=== PATIENT | female | born 1980 ===

== ENCOUNTER 2016-09-29 17:41 | Emergency (ER) | payer MEDICAID ==
[2016-09-29 17:41] VITALS: BMI 16.8
[2016-09-29 17:53] VITALS: BP 96/61; TEMP 98.1
--- NOTE | 2016-09-29 18:07 | ED PDOC ---
Arrival/HPI - General Chief Complaint: Upper Extremity Problem/Injury Time Seen by Provider: 09/29/16 18:06 Historian: Patient - History of Present Illness Narrative History of Present Illness (Text): 09/29/16 18:06 This 36 yo female with pmh RA, pain management patient, presents to this ED c/o right middle shoulder pain x 4 days. Denies trauma. Patient is asking for Percocet. [place] [employer] AWARE shows patient has been filling multiple prescriprion for oipiods every months for at least 1 year from multiple providers. Denies shoulder rash, redness, or ecchymosis. Past Medical History - Provider Review Nursing Documentation Reviewed: Yes - Infectious Disease Hx of Infectious Diseases: None - Cardiac Hx Cardiac Disorders: No - Pulmonary Hx Respiratory Disorders: No - Neurological Hx Neurological Disorder: No - HEENT Hx HEENT Disorder: No - Renal Hx Renal Disorder: No - Endocrine/Metabolic Hx Endocrine Disorders: No - Hematological/Oncological Hx Blood Disorders: No - Integumentary Hx Dermatological Disorder: No - Musculoskeletal/Rheumatological Hx Arthritis: Yes Hx Spinal Stenosis: Yes Other/Comment: RA, OA, - Gastrointestinal Hx Gastrointestinal Disorders: No - Genitourinary/Gynecological Hx Genitourinary Disorders: No - Psychiatric Hx Psychophysiologic Disorder: No Hx Substance Use: Yes - Surgical History Hx Cholecystectomy: Yes Other/Comment: B/L foot, left hand, gallbladder removed,. Right knee replacement. - Anesthesia Hx Anesthesia: No Hx Anesthesia Reactions: No Hx Malignant Hyperthermia: No Family/Social History - Physician Review Nursing Documentation Reviewed: Yes Family/Social History: No Known Family HX Smoking Status: Heavy Smoker > 10 Cigarettes Daily Hx Alcohol Use: No Hx Substance Use: Yes Substance used: percocet Allergies/Home Meds Allergies/Adverse Reactions: Allergies tramadol Allergy (Verified 09/29/16 17:52) HEADACHE Home Medications: Home Meds Medication Instructions Recorded Confirmed Oxycodone HCl/Acetaminophen 1 each PO Q4 PRN 06/22/16 09/29/16 [Percocet 10-325 mg Tablet] Review of Systems - Review of Systems Constitutional: Normal. absent: Fatigue, Weight Change, Fevers Eyes: Normal ENT: Normal Respiratory: Normal Cardiovascular: Normal Gastrointestinal: Normal Genitourinary Female: Normal Musculoskeletal: Other (Right shoulder pain) Skin: Normal Neurological: Normal Endocrine: Normal Hemo/Lymphatic: Normal Psychiatric: Normal Physical Exam Vital Signs Temp Pulse Resp BP Pulse Ox 09/29/16 19:17 16 98 09/29/16 18:00 98.1 F 79 20 99 09/29/16 17:49 98.1 F 76 20 96/61 L 98 Temperature: Afebrile Blood Pressure: Normal Pulse: Regular Respiratory Rate: Normal Appearance: Positive for: Well-Appearing, Non-Toxic, Comfortable Pain Distress: None Mental Status: Positive for: Alert and Oriented X 3 - Systems Exam Head: Present: Atraumatic, Normocephalic Pupils: Present: PERRL Extroacular Muscles: Present: EOMI Conjunctiva: Present: Normal Mouth: Present: Moist Mucous Membranes Neck: Present: Normal Range of Motion Respiratory/Chest: Present: Clear to Auscultation, Good Air Exchange. No: Respiratory Distress, Accessory Muscle Use Cardiovascular: Present: Regular Rate and Rhythm, Normal S1, S2. No: Murmurs Abdomen: Present: Normal Bowel Sounds. No: Tenderness, Distention, Peritoneal Signs Back: Present: Normal Inspection Upper Extremity: Present: Normal Inspection, NORMAL PULSES, Tenderness (Mild tenderness right middle deltoid area), Neurovascularly Intact, Capillary Refill < 2s. No: Cyanosis, Edema Lower Extremity: Present: Normal Inspection, NORMAL PULSES, Normal ROM, Capillary Refill < 2 s. No: Edema Neurological: Present: GCS=15, CN II-XII Intact, Speech Normal Skin: Present: Warm, Dry, Normal Color. No: Rashes Psychiatric: Present: Alert, Oriented x 3, Normal Insight, Normal Concentration Medical Decision Making ED Course and Treatment: 09/29/16 18:54 Re-evaluation. Patient feels better. Discussed results and plan with patient who expresses understanding. All questions answered and there is agreement with the plan to discharge home with instructions. Patient stable for discharge. Return if symptoms persist or worsen. Patient is showing drug seeking behavior. She was asking to Percocet. After telling her she has been filling 3-4 prescription of opiods every month. She wanted to have Tylenol with Codeine. I told patient that this hospital has regulation regarding opiods, and since she has multiple prescription, I will treat her pain with non-narcotic medication Re-evaluation Time: 18:54 Reassessment Condition: Re-examined, Improved - RAD Interpretation Narrative RAD Interpretations (Text): Shoulder x-rays: No Fx or sublux. Radiology Orders: 09/29/16 18:21 SHOULDER RIGHT [RAD] Stat - Medication Orders Current Medication Orders: Discontinued Medications Ketorolac Tromethamine (Toradol) 15 mg IM STAT STA Stop: 09/29/16 18:21 Last Admin: 09/29/16 18:38 Dose: 15 mg Disposition/Present on Arrival - Present on Arrival Any Indicators Present on Arrival: No History of DVT/PE: No History of Uncontrolled Diabetes: No Urinary Catheter: No History of Decub. Ulcer: No History Surgical Site Infection Following: None - Disposition Have Diagnosis and Disposition been Completed?: Yes Diagnosis: Shoulder pain, Drug-seeking behavior Disposition: HOME/ ROUTINE Disposition Time: 18:55 Patient Plan: Discharge Condition: GOOD Discharge Instructions (ExitCare): Shoulder Bursitis (ED) Additional Instructions: Call private pain management doctor for revaluation and pain control. Call orthopedist if shoulder pain persist. Return to emergency if symptoms worsen. Prescriptions: Famotidine [Pepcid] 40 mg PO DAILY #10 tablet Naproxen 500 mg PO BID #14 tab Referrals: Venus Walters, [Non-Staff] - Follow up with primary Ricardo Mcginnis DO [Staff Provider] - Follow up with primary [facility] [Outside] - Follow up with primary Forms: WORK NOTE
[2016-09-29 18:21] VITALS: PULSE 79
[2016-09-29 19:18] VITALS: RESP 16; O2SAT 98
--- NOTE | 2016-09-30 10:24 | RAD ---
PROCEDURE: Radiographs of the Right Shoulder HISTORY: pain COMPARISON: No prior. FINDINGS: BONES: Normal. No fracture. JOINTS: Normal. Glenohumeral and acromioclavicular joints preserved. No osteoarthritis. SOFT TISSUES: Normal. OTHER FINDINGS: None. IMPRESSION: Normal radiographs of the right shoulder.
== END 2016-09-29 19:18 | disposition home or self-care (01) ==
LOC: ED 17:41
DX: M25.511 Pain in right shoulder (principal)
CPT/HCPCS: 73030; 96372; 99283; J1885

== ENCOUNTER 2017-11-21 15:47 | Emergency (ER) | payer MEDICAID ==
[2017-11-21 15:47] VITALS: BMI 16.8
[2017-11-21 16:01] VITALS: BP 122/73
[2017-11-21] MEDS ORDERED: Oxycodone/Acetaminophen 5/325 mg Tab PO STA (16:11)
--- NOTE | 2017-11-21 16:33 | ED PDOC ---
Arrival/HPI - General Chief Complaint: Lower Extremity Problem/Injury Time Seen by Provider: 11/21/17 15:51 Historian: Patient - History of Present Illness Narrative History of Present Illness (Text): 11/21/17 16:08 A 37 year old female, whose past medical history includes rheumatoid arthritis ( 17 years), presents to the emergency department complaining of bilateral lower extremity pain for 3 days. Patient reports pain occurs in thighs, knees, and shins. Patient claims to have recently moved [place] her PMD is located, and has had difficulty finding a rheumotoligst in [place]. She notes she is only prescribed Percocet for pain, however has recently ran out of the medication and is unable to obtain a refill until 12/19/17. Patient denies any fever, chills, abdominal pain, nausea, vomiting, chest pain, palpitations, or any other complaints at this time. Also, patient mentions she has no history of consuming alcohol or smoking. No PMD Time/Duration: < week (3 days) Symptom Onset: Sudden Symptom Course: Unchanged Past Medical History - Provider Review Nursing Documentation Reviewed: Yes - Infectious Disease Hx of Infectious Diseases: None - Cardiac Hx Cardiac Disorders: No - Pulmonary Hx Respiratory Disorders: No - Neurological Hx Neurological Disorder: No - HEENT Hx HEENT Disorder: No - Renal Hx Renal Disorder: No - Endocrine/Metabolic Hx Endocrine Disorders: No - Hematological/Oncological Hx Blood Disorders: No - Integumentary Hx Dermatological Disorder: No - Musculoskeletal/Rheumatological Hx Arthritis: Yes Hx Spinal Stenosis: Yes Other/Comment: RA, OA, - Gastrointestinal Hx Gastrointestinal Disorders: No - Genitourinary/Gynecological Hx Genitourinary Disorders: No - Psychiatric Hx Psychophysiologic Disorder: No Hx Substance Use: Yes - Surgical History Hx Cholecystectomy: Yes Other/Comment: B/L foot, left hand, gallbladder removed,. Right knee replacement. - Anesthesia Hx Anesthesia: Yes Hx Anesthesia Reactions: No Hx Malignant Hyperthermia: No Family/Social History - Physician Review Nursing Documentation Reviewed: Yes Family/Social History: No Known Family HX Smoking Status: Heavy Smoker > 10 Cigarettes Daily Hx Alcohol Use: No Hx Substance Use: Yes Substance used: percocet Allergies/Home Meds Allergies/Adverse Reactions: Allergies tramadol Allergy (Verified 09/29/16 17:52) HEADACHE Home Medications: Home Meds Medication Instructions Recorded Confirmed Oxycodone HCl/Acetaminophen 1 each PO Q4 PRN 06/22/16 11/21/17 [Percocet 10-325 mg Tablet] Review of Systems - Physician Review All systems were reviewed & negative as marked: Yes - Review of Systems Constitutional: absent: Fevers, Night Sweats Cardiovascular: absent: Chest Pain, Palpitations Gastrointestinal: absent: Abdominal Pain, Nausea, Vomiting Musculoskeletal: Other (bilateral lower extremity pain (thighs, knees and shins) ) Physical Exam Vital Signs Reviewed: Yes Vital Signs Temp Pulse Resp BP Pulse Ox 11/21/17 16:00 98.6 F 96 H 18 122/73 100 Temperature: Afebrile Blood Pressure: Normal Pulse: Regular Respiratory Rate: Normal Appearance: Positive for: Well-Appearing Pain Distress: None Mental Status: Positive for: Alert and Oriented X 3 - Systems Exam Head: Present: Atraumatic, Normocephalic Neck: Present: Normal Range of Motion Respiratory/Chest: Present: Clear to Auscultation, Good Air Exchange. No: Respiratory Distress, Accessory Muscle Use Cardiovascular: Present: Regular Rate and Rhythm, Normal S1, S2. No: Murmurs Abdomen: No: Tenderness, Distention, Peritoneal Signs Back: Present: Normal Inspection Upper Extremity: Present: Normal Inspection. No: Cyanosis, Edema Lower Extremity: Present: Normal Inspection. No: Edema Neurological: Present: GCS=15, CN II-XII Intact, Speech Normal Skin: Present: Warm, Dry, Normal Color. No: Rashes Psychiatric: Present: Alert, Oriented x 3, Normal Insight, Normal Concentration Medical Decision Making ED Course and Treatment: 11/21/17 16:11 Impression: 37 year old female with bilateral lower extremity pain to thighs, knees and shins. No acute findings on physical examination. Plan: -- Lower Extremity Ultrasound -- Labs -- Percocet -- Reassess and disposition Prior Visits: Notes and results from previous visits were reviewed. Patient was last seen in the emergency department on 09/29/2016 for right middle shoulder pain. Patient was discharged home. Progress Notes: 11/21/2017 17:15 Lower Extremity Ultrasound IMPRESSION: No sonographic evidence for deep venous thrombosis in the visualized segments of both lower extremities. Dictator: Bud Posada MD - Lab Interpretations Lab Results: 11/21/17 16:16 11/21/17 16:16 Lab Results 11/21/17 16:16: Sodium 142, Potassium 3.6, Chloride 109 H, Carbon Dioxide 21, Anion Gap 16, BUN 6 L, Creatinine 0.4 L, Est GFR ( Amer) > 60, Est GFR ( Non-Af Amer) > 60, Random Glucose 97, Calcium 8.8, Total Bilirubin 0.6, AST 18, ALT 25, Alkaline Phosphatase 84, Total Protein 7.6, Albumin 4.1, Globulin 3.6, Albumin/Globulin Ratio 1.2 11/21/17 16:16: PT 12.9 H, INR 1.13 H 11/21/17 16:16: WBC 9.7, RBC 4.22, Hgb 12.8, Hct 37.2, MCV 88.2, MCH 30.3, MCHC 34.4, RDW 14.3, Plt Count 353, MPV 9.6, Gran % 54.4, Lymph % (Auto) 34.5, Zapata % (Auto) 5.2, Eos % (Auto) 5.8 H, Baso % (Auto) 0.1, Gran # 5.29, Lymph # (Auto ) 3.4, Zapata # (Auto) 0.5, Eos # (Auto) 0.6, Baso # (Auto) 0.01, ESR 25 H I have reviewed the lab results: Yes - RAD Interpretation Radiology Orders: 11/21/17 16:11 DUPLEX LOWER EXTRM VEIN BILAT [US] Stat - Medication Orders Current Medication Orders: Discontinued Medications Oxycodone/Acetaminophen (Percocet 5/325 Mg Tab) 2 tab PO STAT STA Stop: 11/21/17 16:12 Last Admin: 11/21/17 16:18 Dose: 2 tab MAR Pain Assessment Document 11/21/17 16:18 [email or web address] (Rec: 11/21/17 16:19 [email or web address] [facility] [place] [id number][place] Pain Reassessment Is this a pain reassessment? No Sleep Is patient sleeping during reassessment? No Presence of Pain Presence of Pain Yes Pain Scale Used Pain Scale Used Numeric Location Left, Right or Bilateral Bilateral Pain Location Body Site Leg Description Description Constant Intensity of Pain at present 7 Pain Behavior Facial Grimacing Aggravating Factors Changing Position Alleviating Factors/Management Medication Techniques Alleviating Factors Medication - Scribe Statement The provider has reviewed the documentation as recorded by the Mya Cote Provider Scribe Attestation: All medical record entries made by the Scribe were at my direction and personally dictated by me. I have reviewed the chart and agree that the record accurately reflects my personal performance of the history, physical exam, medical decision making, and the department course for this patient. I have also personally directed, reviewed, and agree with the discharge instructions and disposition. Disposition/Present on Arrival - Present on Arrival Any Indicators Present on Arrival: No History of DVT/PE: No History of Uncontrolled Diabetes: No Urinary Catheter: No History of Decub. Ulcer: No History Surgical Site Infection Following: None - Disposition Have Diagnosis and Disposition been Completed?: Yes Diagnosis: Chronic pain, History of rheumatoid arthritis Disposition: HOME/ ROUTINE Disposition Time: 17:51 Patient Plan: Discharge Condition: GOOD Discharge Instructions (ExitCare): Chronic Pain (DC), Rheumatoid Arthritis (DC) Additional Instructions: Mila - Sorry that you are having so much pain. Please follow up with Dr Juan Hoff in [place], (Pinmaker)@ [phone]. [facility]- Dr. Noe Guevara Referrals: Maribell Worley MD [Primary Care Provider] - Follow up with primary Forms: [employer] (Telugu)
[2017-11-21 16:40] LABS: BASO # 0.01 K/mm3 (0.0-2.0); BASO % 0.1 % (0.0-3.0); EOS # 0.6 (0.0-0.7); EOS % 5.8 % (1.5-5.0); GRAN # 5.29 (1.4-6.5); GRAN % 54.4 % (50.0-68.0); HEMOGLOBIN 12.8 g/dL (12.0-16.0); LYMPH # 3.4 (1.2-3.4); LYMPH % 34.5 % (22.0-35.0); MEAN CELL VOLUME 88.2 fl (80.0-105.0); MEAN CORPUSCULAR HEMOGLOBIN 30.3 pg (25.0-35.0); MEAN CORPUSCULAR HGB CONC 34.4 g/dl (31.0-37.0); MEAN PLATELET VOLUME 9.6 fl (7.0-11.0); MONO # 0.5 (0.1-0.6); MONO % 5.2 % (1.0-6.0); RBC 4.22 10^6/uL (3.5-6.1); RED CELL DISTRIBUTION WIDTH 14.3 % (11.5-14.5); WHITE BLOOD COUNT 9.7 10^3/ul (4.5-11.0)
[2017-11-21 16:49] LABS: ALB/GLOB RATIO 1.2 (1.1-1.8); ALBUMIN 4.1 g/dL (3.0-4.8); ALT/SGPT 25 U/L (7-56); AST/SGOT 18 U/L (14-36); BLOOD UREA NITROGEN 6 mg/dL (7-21); CALCIUM 8.8 mg/dL (8.4-10.5); GFR AFRICAN-AMERICAN > 60; GFR NON-AFRICAN AMERICAN > 60
[2017-11-21 16:51] LABS: INR 1.13 (0.93-1.08); PROTHROMBIN TIME 12.9 SECONDS (9.4-12.5)
--- NOTE | 2017-11-21 17:16 | US ---
HISTORY: Leg pain and swelling. Evaluate for DVT PHYSICIAN(S): Bud Posada MD. TECHNIQUE: Duplex sonography and color-flow Doppler with graded compression were used to evaluate the deep venous systems of both lower extremities. FINDINGS: The visualized deep venous systems of both lower extremities are sonographically normal and compressible. Normal wave forms and augmentation are seen. There is no sonographic evidence for deep venous thrombosis in the visualized segments of both lower extremities. IMPRESSION: No sonographic evidence for deep venous thrombosis in the visualized segments of both lower extremities.
[2017-11-21 18:08] VITALS: PULSE 95; RESP 19; TEMP 98.1; O2SAT 99
== END 2017-11-21 18:08 | disposition home or self-care (01) ==
LOC: ED 15:47
DX: G89.29 Other chronic pain (principal); M06.9 Rheumatoid arthritis, unspecified; F17.210 Nicotine dependence, cigarettes, uncomplicated; Z96.651 Presence of right artificial knee joint

== ENCOUNTER 2018-01-05 22:39 | Observation (INO) | payer MEDICAID ==
[2018-01-05 22:51] VITALS: BMI 18.5
[2018-01-06 00:21] LABS: BASO # 0.02 K/mm3 (0.0-2.0); BASO % 0.1 % (0.0-3.0); EOS # 0.5 (0.0-0.7); EOS % 3.9 % (1.5-5.0); GRAN # 8.92 (1.4-6.5); GRAN % 63.9 % (50.0-68.0); HEMOGLOBIN 12.8 g/dL (12.0-16.0); LYMPH # 3.9 (1.2-3.4); LYMPH % 27.7 % (22.0-35.0); MEAN CELL VOLUME 90.1 fl (80.0-105.0); MEAN CORPUSCULAR HEMOGLOBIN 29.5 pg (25.0-35.0); MEAN CORPUSCULAR HGB CONC 32.7 g/dl (31.0-37.0); MEAN PLATELET VOLUME 10.2 fl (7.0-11.0); MONO # 0.6 (0.1-0.6); MONO % 4.4 % (1.0-6.0); RBC 4.34 10^6/uL (3.5-6.1); RED CELL DISTRIBUTION WIDTH 13.9 % (11.5-14.5)
[2018-01-06 00:26] LABS: ALB/GLOB RATIO 1.3 (1.1-1.8); ALBUMIN 4.3 g/dL (3.0-4.8); ALT/SGPT 23 U/L (7-56); AST/SGOT 31 U/L (14-36); BLOOD UREA NITROGEN 4 mg/dL (7-21); CALCIUM 9.1 mg/dL (8.4-10.5); GFR AFRICAN-AMERICAN > 60; GFR NON-AFRICAN AMERICAN > 60
[2018-01-06 00:36] LABS: TROPONIN I < 0.01 ng/mL
[2018-01-06] MEDS ORDERED: Oxycodone/Acetaminophen 5/325 mg Tab PO STA ×2 (00:58→13:31)
--- NOTE | 2018-01-06 00:58 | ED PDOC ---
Arrival/HPI <Juan Kimball - Last Filed: 01/06/18 02:28> - General Historian: Patient <Raina Blanton PA-C - Last Filed: 01/06/18 16:17> - General Chief Complaint: Chest Pain Time Seen by Provider: 01/05/18 23:26 - History of Present Illness Narrative History of Present Illness (Text): 01/06/18 00:55 37 yo F with PMH of pericardial effusion from an unknown cause 5 years ago, reports developing constant R sided midsternal chest pain worse with taking deep breathes. Reports that she had similar symptoms last week and she saw her student accounts manager who did an EKG in the office, was told that there was an old heart attack noted on her EKG. She was told by her student accounts manager to go for an echocardiogram and for a stress test that is scheduled at the end of December.at the end of December. Otherwise: (-) radiation, (-) diaphoresis, (-) dyspnea, (+) pleuritic component, (-) ripping or tearing quality, (-) positional component, ( -) exertional component, (-) dizziness, (-) syncope, (-) nausea, (-) vomiting, ( -) calf swelling/pain, (-) recent travel, (-) recent hospitalizations/surgeries , (-) neuro deficits. PMD [employer] [place] (Raina Blanton PA-C) Past Medical History - Infectious Disease Hx of Infectious Diseases: None - Cardiac Hx Cardiac Disorders: No - Pulmonary Hx Respiratory Disorders: No - Neurological Hx Neurological Disorder: No - HEENT Hx HEENT Disorder: No - Renal Hx Renal Disorder: No - Endocrine/Metabolic Hx Endocrine Disorders: No - Hematological/Oncological Hx Blood Disorders: No - Integumentary Hx Dermatological Disorder: No - Musculoskeletal/Rheumatological Hx Arthritis: Yes Hx Spinal Stenosis: Yes Other/Comment: RA, OA, - Gastrointestinal Hx Gastrointestinal Disorders: No - Genitourinary/Gynecological Hx Genitourinary Disorders: No - Psychiatric Hx Psychophysiologic Disorder: No Hx Substance Use: Yes - Surgical History Hx Cholecystectomy: Yes Other/Comment: B/L foot, left hand, gallbladder removed,. Right knee replacement. - Anesthesia Hx Anesthesia: No <Raina Blanton PA-C - Last Filed: 01/06/18 16:17> Family/Social History Family/Social History: No Known Family HX Smoking Status: Heavy Smoker > 10 Cigarettes Daily Hx Alcohol Use: No Hx Substance Use: Yes Substance used: percocet <Raina Blanton PA-C - Last Filed: 01/06/18 16:17> Allergies/Home Meds <Juan Kmiball - Last Filed: 01/06/18 02:28> <Raina Blanton PA-C - Last Filed: 01/06/18 16:17> Allergies/Adverse Reactions: Allergies tramadol Allergy (Verified 01/05/18 22:50) HEADACHE Review of Systems - Review of Systems Constitutional: absent: Fatigue, Weight Change, Fevers Respiratory: absent: SOB, Cough, Sputum Cardiovascular: Chest Pain. absent: Palpitations, Edema Gastrointestinal: absent: Abdominal Pain, Nausea, Vomiting Genitourinary Female: absent: Dysuria, Frequency Musculoskeletal: absent: Arthralgias, Back Pain, Neck Pain Skin: absent: Rash, Pruritis, Skin Lesions Neurological: absent: Headache, Dizziness <Raina Blanton PA-C - Last Filed: 01/06/18 16:17> Physical Exam Temperature: Afebrile Blood Pressure: Normal Pulse: Regular Respiratory Rate: Normal Appearance: Positive for: Well-Appearing, Non-Toxic, Comfortable Pain Distress: None Mental Status: Positive for: Alert and Oriented X 3 - Systems Exam Head: Present: Atraumatic, Normocephalic Pupils: Present: PERRL Extroacular Muscles: Present: EOMI Conjunctiva: Present: Normal Mouth: Present: Moist Mucous Membranes Neck: Present: Normal Range of Motion. No: MIDLINE TENDERNESS Respiratory/Chest: Present: Clear to Auscultation, Good Air Exchange. No: Respiratory Distress, Accessory Muscle Use Cardiovascular: Present: Regular Rate and Rhythm, Normal S1, S2. No: Murmurs, Rub, Muffled Abdomen: No: Tenderness, Distention, Peritoneal Signs Back: Present: Normal Inspection. No: CVA Tenderness, Midline Tenderness Upper Extremity: Present: Normal Inspection. No: Cyanosis, Edema Lower Extremity: Present: Normal Inspection. No: Edema Neurological: Present: GCS=15, CN II-XII Intact, Speech Normal, Motor Func Grossly Intact, Normal Sensory Function Skin: Present: Warm, Dry, Normal Color. No: Rashes Psychiatric: Present: Alert, Oriented x 3, Normal Insight, Normal Concentration <Raina Blanton PA-C - Last Filed: 01/06/18 16:17> Vital Signs Temp Pulse Resp BP Pulse Ox 01/06/18 02:38 65 16 98/58 L 100 01/06/18 00:40 65 16 96/54 L 99 01/05/18 22:40 98.5 F 99 H 19 98/56 L 96 Medical Decision Making <Juan Kimball - Last Filed: 01/06/18 02:28> <Raina Blanton PA-C - Last Filed: 01/06/18 16:17> ED Course and Treatment: 01/06/18 00:53 Plan : - Labs - IV - CXR - EKG - Asa PO PERC Rule for Pulmonary Embolism from [facility] on 01/06/2018 All calculations should be rechecked by clinician prior to use RESULT SUMMARY: 0 criteria No need for further workup, as <2% chance of PE. If no criteria are positive and clinicians pre-test probability is <15%, PERC Rule criteria are satisfied. INPUTS: Age 50 > 0 = No HR 100 > 0 = No Karla on room air <95% > 0 = No Unilateral leg swelling > 0 = No Hemoptysis > 0 = No Recent surgery or trauma > 0 = No Prior PE or DVT > 0 = No Hormone use > 0 = No 01/06/18 00:59 EKG : ST at 102 bpm, (-) acute ST changes, as read by PA Labs reviewed : wbc 14, K 3.4, trop (-) CXR : NAD, as read by ABDELRAHMAN Matt d/w Dr. Del Rosario, agrees with plan for tele obs. (Raina Blanton PA-C) - Lab Interpretations Lab Results: 01/05/18 23:55 01/05/18 23:55 Lab Results 01/05/18 23:55: Sodium 143, Potassium 3.4 L, Chloride 105, Carbon Dioxide 25, Anion Gap 17, BUN 4 L, Creatinine 0.5 L, Est GFR ( Amer) > 60, Est GFR ( Non-Af Amer) > 60, Random Glucose 101, Calcium 9.1, Magnesium 2.0, Total Bilirubin 0.5, AST 31, ALT 23, Alkaline Phosphatase 84, Lactate Dehydrogenase 377, Total Creatine Kinase 34 L, Troponin I < 0.01, Total Protein 7.5, Albumin 4.3, Globulin 3.2, Albumin/Globulin Ratio 1.3 01/05/18 23:55: WBC 14.0 H D, RBC 4.34, Hgb 12.8, Hct 39.1, MCV 90.1, MCH 29.5, MCHC 32.7, RDW 13.9, Plt Count 385, MPV 10.2, Gran % 63.9, Lymph % (Auto) 27.7, [place] % (Auto) 4.4, Eos % (Auto) 3.9, Baso % (Auto) 0.1, Gran # 8.92 H, Lymph # ( Auto) 3.9 H, [place] # (Auto) 0.6, Eos # (Auto) 0.5, Baso # (Auto) 0.02 - RAD Interpretation Radiology Orders: 01/05/18 23:58 CHEST TWO VIEWS (PA/LAT) [RAD] Stat - Medication Orders Current Medication Orders: Discontinued Medications Aspirin (Aspirin) 325 mg PO STAT STA Stop: 01/05/18 23:59 Last Admin: 01/06/18 00:19 Dose: 325 mg Aspirin (Ecotrin) 81 mg PO DAILY [facility] Last Admin: 01/06/18 10:06 Dose: 81 mg Atorvastatin Calcium (Lipitor) 40 mg PO DIN [facility] Enoxaparin Sodium (Lovenox) 40 mg SC DAILY [facility] PRN Reason: Protocol Last Admin: 01/06/18 13:30 Dose: Not Given Non-Admin Reason: Patient Refused Sodium Chloride (Sodium Chloride 0.9%) 1,000 mls @ 100 mls/hr IV .Q10H [facility] Naproxen (Anaprox Ds) 550 mg PO BID [facility] Last Admin: 01/06/18 10:00 Dose: Not Given Non-Admin Reason: Patient Refused Oxycodone/Acetaminophen (Percocet 5/325 Mg Tab) 1 tab PO STAT STA Stop: 01/06/18 00:59 Last Admin: 01/06/18 01:48 Dose: 1 tab MAR Pain Assessment Document 01/06/18 01:48 JOL (Rec: 01/06/18 01:48 JOL [id number]) Pain Reassessment Is this a pain reassessment? No Sleep Is patient sleeping during reassessment? No Presence of Pain Presence of Pain Yes Location Pain Location Body Site Chest Description Intensity of Pain at present 5 Re-Assess: [facility] Pain Assessment Document 01/06/18 02:48 ML (Rec: 01/06/18 04:41 ML [id number]) Pain Reassessment Is this a pain reassessment? Yes Presence of Pain Presence of Pain No Oxycodone/Acetaminophen (Percocet 5/325 Mg Tab) 1 tab PO QID [facility] Stop: 01/09/18 10:01 Oxycodone/Acetaminophen (Percocet 5/325 Mg Tab) 1 tab PO QID PRN PRN Reason: Pain, severe (8-10) Stop: 01/09/18 10:01 Oxycodone/Acetaminophen (Percocet 5/325 Mg Tab) 1 tab PO STAT STA Stop: 01/06/18 13:32 Last Admin: 01/06/18 14:16 Dose: 1 tab [facility] Pain Assessment Document 01/06/18 14:16 ROSIE (Rec: 01/06/18 14:17 [facility] [id number]) Pain Reassessment Is this a pain reassessment? No Sleep Is patient sleeping during reassessment? No Presence of Pain Presence of Pain Yes Pain Scale Used Pain Scale Used Numeric Location Pain Location Body Site Generalized Description Description Intermittent Intensity of Pain at present 7 Pantoprazole Sodium (Protonix Inj) 40 mg IVP DAILY [facility] Last Admin: 01/06/18 10:06 Dose: 40 mg IVP Administration Document 01/06/18 10:06 [facility] (Rec: 01/06/18 10:06 [facility] [id number]) Charges for Administration # of IVP Administrations 1 Pantoprazole Sodium (Protonix Ec Tab) 40 mg PO ACB [facility] Potassium Chloride (Klor-Con 10) 40 meq PO STAT STA Stop: 01/06/18 01:45 Last Admin: 01/06/18 02:38 Dose: 40 meq - PA / WEB PORTAL DEVELOPER / Resident Statement / has reviewed & agrees with the documentation as recorded. / has examined the patient and agrees with the treatment plan. <Juan Kimball - Last Filed: 01/06/18 02:28> - PA / WEB PORTAL DEVELOPER / Resident Statement / has reviewed & agrees with the documentation as recorded. <Raina Blanton PA-C - Last Filed: 01/06/18 16:17> Disposition/Present on Arrival <Juan Kimball - Last Filed: 01/06/18 02:28> - Present on Arrival Any Indicators Present on Arrival: No History of DVT/PE: No History of Uncontrolled Diabetes: No Urinary Catheter: No History of Decub. Ulcer: No History Surgical Site Infection Following: None - Disposition Have Diagnosis and Disposition been Completed?: Yes Disposition Time: 02:00 Patient Plan: Telemetry (observation) <Raina Blanton PA-C - Last Filed: 01/06/18 16:17> - Disposition Diagnosis: Chest pain Disposition: HOSPITALIZED Condition: STABLE
[2018-01-06] MEDS ORDERED: Potassium Chloride 10 mEq ER Tab PO STA (01:44)
[2018-01-06] MEDS ORDERED: Oxycodone/Acetaminophen 5/325 mg Tab PO PRN ×2 (05:42→05:46)
--- NOTE | 2018-01-06 06:03 | CP.PCM.HP ---
History of Present Illness - History of Present Illness History of Present Illness: HISTORY & PHYSICAL NOTE FOR HOSPITALIST TEAM AINSH REDDY PGY-1 CC: Chest pain, worse with inspiration 37 y/o F with pmhx of pericardial effusion, RA presented to ED with complains of constant "pressure like" chest pain that's aggravated with inspiration and not alleviated by anything in particular. Pain is located in sternal region and is currently 8/10 severity, without radiation and without tearing quality. The pain had started yesterday around 5pm, and remained since then. She reports having similar pain about a week prior and visited securities counselor who told her she had "an old heart attack." She was scheduled to undergo an echocardiogram with stress test in outpatient setting in december. She is followed by a securities counselor at [place]. She denies fevers, chills, diophoresis, shortness of breath, nausea, vomiting, headache, dizziness, constipation, diarrhea. PMD: unable to obtain PMH: pericardial effusion, rheumatoid arthritis PSH: b/l hand surgery, b/l l/e distal phalanx surgery, R total knee replacement SH: cigarettes: pack/day x 24 years. Denies alcohol/drug use All: tramadol- rash Famhx: Brother: "open heart surgery" for pericardial effusion Meds: Percocet 5/325 prn pain Present on Admission - Present on Admission Any Indicators Present on Admission: No Review of Systems - Review of Systems All systems: reviewed and no additional remarkable complaints except (as per HPI , otherwise negative) Past Patient History - Infectious Disease Hx of Infectious Diseases: None - Past Social History Smoking Status: Heavy Smoker > 10 Cigarettes Daily - CARDIAC Hx Cardiac Disorders: No - PULMONARY Hx Respiratory Disorders: No - NEUROLOGICAL Hx Neurological Disorder: No - HEENT Hx HEENT Problems: No - RENAL Hx Chronic Kidney Disease: No - ENDOCRINE/METABOLIC Hx Endocrine Disorders: No - HEMATOLOGICAL/ONCOLOGICAL Hx Blood Disorders: No - INTEGUMENTARY Hx Dermatological Problems: No - MUSCULOSKELETAL/RHEUMATOLOGICAL Hx Arthritis: Yes Hx Falls: No Hx Rheumatoid Arthritis: Yes Hx Spinal Stenosis: Yes Other/Comment: RA, OA, - GASTROINTESTINAL Hx Gastrointestinal Disorders: No - GENITOURINARY/GYNECOLOGICAL Hx Genitourinary Disorders: No - PSYCHIATRIC Hx Psychophysiologic Disorder: No - SURGICAL HISTORY Hx Cholecystectomy: Yes Other/Comment: B/L foot, left hand, gallbladder removed,. Right knee replacement. - ANESTHESIA Hx Anesthesia: No Meds Allergies/Adverse Reactions: Allergies Allergy/AdvReac Type Severity Reaction Status Date / Time tramadol Allergy HEADACHE Verified 01/05/18 22:50 Physical Exam - Constitutional Appears: Well, Non-toxic, No Acute Distress - Head Exam Head Exam: NORMAL INSPECTION, NORMOCEPHALIC - Eye Exam Eye Exam: EOMI, Normal appearance - ENT Exam ENT Exam: Mucous Membranes Moist, Normal Exam - Neck Exam Neck exam: Positive for: Normal Inspection. Negative for: Meningismus - Respiratory Exam Respiratory Exam: Chest Wall Tenderness, Clear to Auscultation Bilateral, NORMAL BREATHING PATTERN - Cardiovascular Exam Cardiovascular Exam: REGULAR RHYTHM, +S1, +S2 Additional comments: No friction rub noted - GI/Abdominal Exam GI & Abdominal Exam: Normal Bowel Sounds, Soft. absent: Distended - Extremities Exam Additional comments: Bouchards nodes b/l u/e - Neurological Exam Neurological exam: Alert, CN II-XII Intact, Oriented x3 Results - Vital Signs Recent Vital Signs: Last Vital Signs Temp 98.5 F 01/05/18 22:40 Pulse 65 01/06/18 04:15 Resp 14 01/06/18 04:15 BP 98/58 L 01/06/18 04:15 Pulse Ox 100 01/06/18 02:38 - Labs Result Diagrams: 01/06/18 05:30 01/06/18 05:30 Assessment & Plan - Assessment and Plan (Free Text) Assessment: 37y/o F with pmhx of pericardial effusion, rheumatoid arthritis admitted for ACS rule out. Pt had recently visited her securities counselor who told her that she had EKG changes suggesting previous SC. She was scheduled for echocardiogram and stress test in december. She arrived to ED with constant pleuritic chest pain. Plan: 1. 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 Alvarez Echocardiogram in am O2 2L NC prn Heart healthy diet 2. Rheumatoid Arthritis Continue home 5/325 percocet Follow up with veneer lathe operator outpatient 3. Tobacco use disorder Encourage cessation DVT/GI: Lovenox/protonix Case discussed with and reviewed with attending physician, Dr. Del Rosario
[2018-01-06 06:31] LABS: BASO # 0.02 K/mm3 (0.0-2.0); BASO % 0.2 % (0.0-3.0); EOS # 0.6 (0.0-0.7); EOS % 6.1 % (1.5-5.0); GRAN # 4.41 (1.4-6.5); GRAN % 48.4 % (50.0-68.0); HEMOGLOBIN 11.3 g/dL (12.0-16.0); LYMPH # 3.6 (1.2-3.4); LYMPH % 39.6 % (22.0-35.0); MEAN CELL VOLUME 89.5 fl (80.0-105.0); MEAN CORPUSCULAR HGB CONC 32.5 g/dl (31.0-37.0); MEAN PLATELET VOLUME 9.9 fl (7.0-11.0); MONO # 0.5 (0.1-0.6); MONO % 5.7 % (1.0-6.0); RBC 3.89 10^6/uL (3.5-6.1); RED CELL DISTRIBUTION WIDTH 14.1 % (11.5-14.5); WHITE BLOOD COUNT 9.1 10^3/ul (4.5-11.0)
[2018-01-06] MEDS ORDERED: Sodium Chloride 0.9% 1,000 ML IV SCH (06:45)
[2018-01-06 07:43] LABS: BLOOD UREA NITROGEN 7 mg/dL (7-21); GFR AFRICAN-AMERICAN > 60; GFR NON-AFRICAN AMERICAN > 60
[2018-01-06 07:44] LABS: ALB/GLOB RATIO 1.1 (1.1-1.8); ALBUMIN 3.4 g/dL (3.0-4.8); ALT/SGPT 28 U/L (7-56); AST/SGOT 29 U/L (14-36); CALCIUM 8.5 mg/dL (8.4-10.5)
--- NOTE | 2018-01-06 08:11 | CP.PCM.CON ---
History of Present Illness - History of Present Illness History of Present Illness: awaken, alert,no distress, mild mid sternal chest pain Reason for consultation: Cardiac evaluation of chest pain, history of pericardial effusion Brief history of present illness: A 37 year old female who came in to the ER due to right sided mid chest pain, non radiating, worse when taking deep breaths. She has similar symptoms last week and went to her kiln maintenance and had an EKG. She was scheduled to have ECHO and Stress test end of December. Current smoker 1 pack per day, history of arthritis, pericardial effusion, spinal stenosis, right knee replacement, cholecystectomy. Seen and examined by me and Dr. Adams Review of Systems - Review of Systems All systems: reviewed and no additional remarkable complaints except Review of Systems: as per HPI Past Patient History - Infectious Disease Hx of Infectious Diseases: None - Past Social History Smoking Status: Heavy Smoker > 10 Cigarettes Daily - CARDIAC Hx Cardiac Disorders: No - PULMONARY Hx Respiratory Disorders: No - NEUROLOGICAL Hx Neurological Disorder: No - HEENT Hx HEENT Problems: No - RENAL Hx Chronic Kidney Disease: No - ENDOCRINE/METABOLIC Hx Endocrine Disorders: No - HEMATOLOGICAL/ONCOLOGICAL Hx Blood Disorders: No - INTEGUMENTARY Hx Dermatological Problems: No - MUSCULOSKELETAL/RHEUMATOLOGICAL Hx Arthritis: Yes Hx Falls: No Hx Rheumatoid Arthritis: Yes Hx Spinal Stenosis: Yes Other/Comment: RA, OA, - GASTROINTESTINAL Hx Gastrointestinal Disorders: No - GENITOURINARY/GYNECOLOGICAL Hx Genitourinary Disorders: No - PSYCHIATRIC Hx Psychophysiologic Disorder: No - SURGICAL HISTORY Hx Cholecystectomy: Yes Other/Comment: B/L foot, left hand, gallbladder removed,. Right knee replacement. - ANESTHESIA Hx Anesthesia: No Meds Home Medications: Home Medication List Medication Instructions Recorded Confirmed Type Aspirin [Ecotrin] 81 mg PO DAILY #14 tabec 01/06/18 Rx Atorvastatin [Lipitor] 40 mg PO DIN #14 tab 01/06/18 Rx Allergies/Adverse Reactions: Allergies Allergy/AdvReac Type Severity Reaction Status Date / Time tramadol Allergy HEADACHE Verified 01/05/18 22:50 - Medications Medications: Current Medications Aspirin (Ecotrin) 81 mg PO DAILY [facility] Atorvastatin Calcium (Lipitor) 40 mg PO DIN [facility] Enoxaparin Sodium (Lovenox) 40 mg SC DAILY [facility] PRN Reason: Protocol Sodium Chloride (Sodium Chloride 0.9%) 1,000 mls @ 100 mls/hr IV .Q10H [facility] Ibuprofen (Motrin Tab) 600 mg PO Q6H PRN PRN Reason: Pain, moderate (4-7) Oxycodone/Acetaminophen (Percocet 5/325 Mg Tab) 1 tab PO QID PRN PRN Reason: Pain, severe (8-10) Stop: 01/09/18 10:01 Pantoprazole Sodium (Protonix Inj) 40 mg IVP DAILY [facility] Physical Exam - Constitutional Appears: No Acute Distress - Head Exam Head Exam: NORMOCEPHALIC - Eye Exam Eye Exam: Normal appearance - ENT Exam ENT Exam: Mucous Membranes Moist - Respiratory Exam Respiratory Exam: Clear to Auscultation Bilateral, NORMAL BREATHING PATTERN - Cardiovascular Exam Cardiovascular Exam: REGULAR RHYTHM, +S1, +S2 Additional comments: mild mid sternal chest pain when breathing - GI/Abdominal Exam GI & Abdominal Exam: Normal Bowel Sounds, Soft - Extremities Exam Additional comments: right leg 1+edema - Neurological Exam Neurological exam: Alert, Oriented x3 - Psychiatric Exam Psychiatric exam: Normal Affect - Skin Skin Exam: Dry, Intact, Warm Results - Vital Signs Recent Vital Signs: Last Vital Signs Temp 98.5 F 01/05/18 22:40 Pulse 65 01/06/18 04:15 Resp 14 01/06/18 04:15 BP 98/58 L 01/06/18 04:15 Pulse Ox 100 01/06/18 02:38 - Labs Result Diagrams: 01/06/18 05:30 01/06/18 05:30 Labs: Laboratory Results - last 24 hr 01/06/18 01/06/18 05:30 05:30 WBC 9.1 D RBC 3.89 Hgb 11.3 L Hct 34.8 L MCV 89.5 MCH 29.0 MCHC 32.5 RDW 14.1 Plt Count 329 MPV 9.9 Gran % 48.4 L Lymph % (Auto) 39.6 H [place] % (Auto) 5.7 Eos % (Auto) 6.1 H Baso % (Auto) 0.2 Gran # 4.41 Lymph # (Auto) 3.6 H [place] # (Auto) 0.5 Eos # (Auto) 0.6 Baso # (Auto) 0.02 Sodium 141 Potassium 4.3 Chloride 107 Carbon Dioxide 26 Anion Gap 12 BUN 7 Creatinine 0.4 L Est GFR ( Amer) > 60 Est GFR (Non-Af Amer) > 60 Random Glucose 92 Calcium 8.5 Phosphorus 3.6 Magnesium 1.9 Total Bilirubin 0.3 AST 29 ALT 28 Alkaline Phosphatase 74 Total Protein 6.5 Albumin 3.4 Globulin 3.0 Albumin/Globulin Ratio 1.1 Assessment & Plan - Assessment and Plan (Free Text) Assessment: A 37 year old female who came in to the ER due to right sided mid chest pain, non radiating, worse when taking deep breaths. She has similar symptoms last week and went to her kiln maintenance and had an EKG. She was scheduled to have ECHO and Stress test end of December. Atypical chest pain, Will order ECHO to rule out pericardial effusion or pericarditis. Troponin normal. Will start Naprosyn. No previous cardiac work up at [facility]. Plan: Will order ECHO to rule out pericardial effusion/pericarditis Start Naprosyn Out patient Stress test Troponin normal Blood pressure and heart rate controlled Continue current treatment Will follow up Plan and treatment discussed with Dr. Adams Thank you Dr. Lloyd for the opportunity of taking care of . Mila Salamanca Janay - Date & Time Date: 01/06/18 Time: 06:35
[2018-01-06 08:21] VITALS: BP 83/44; PULSE 80; RESP 20; TEMP 97; O2SAT 97
[2018-01-06 09:02] LABS: HDL CHOLESTEROL 31 mg/dL (29-60)
[2018-01-06 09:13] LABS: LDL CHOLESTEROL 63 mg/dL (0-129)
--- NOTE | 2018-01-06 09:58 | RAD ---
Date of service: 01/06/2018 HISTORY: chest pain COMPARISON: 03/25/2016 TECHNIQUE: Chest PA and lateral FINDINGS: LUNGS: No active pulmonary disease. PLEURA: No significant pleural effusion identified. No pneumothorax apparent. CARDIOVASCULAR: Normal. OSSEOUS STRUCTURES: No significant abnormalities. VISUALIZED UPPER ABDOMEN: Normal. OTHER FINDINGS: None. IMPRESSION: No active disease.
[2018-01-06] MEDS ORDERED: Enoxaparin 40 mg Syringe SC SCH (10:00)
[2018-01-06] MEDS ORDERED: Oxycodone/Acetaminophen 5/325 mg Tab PO SCH (10:00)
[2018-01-06] MEDS ORDERED: Naproxen 550 mg Tab PO SCH (10:00)
--- NOTE | 2018-01-06 11:49 | CARD ---
APPROVED REPORT Date of service: 01/06/2018 EKG Measurement Heart [id number] <Conclusion> Normal sinus rhythm Normal ECG
--- NOTE | 2018-01-06 13:20 | CP.PCM.DIS ---
Provider - Provider Date of Admission: 01/06/18 02:28 Attending physician: Yonny Irwin MD Primary care physician: Antoinette Pena MD Consults: cardio - Dr. Alvarez Time Spent in preparation of Discharge (in minutes): 45 Hospital Course - Lab Results Lab Results: Most Recent Lab Values WBC 9.1 10^3/ul (4.5-11.0) D 01/06/18 05:30 RBC 3.89 10^6/uL (3.5-6.1) 01/06/18 05:30 Hgb 11.3 g/dL (12.0-16.0) L 01/06/18 05:30 Hct 34.8 % (36.0-48.0) L 01/06/18 05:30 MCV 89.5 fl (80.0-105.0) 01/06/18 05:30 MCH 29.0 pg (25.0-35.0) 01/06/18 05:30 MCHC 32.5 g/dl (31.0-37.0) 01/06/18 05:30 RDW 14.1 % (11.5-14.5) 01/06/18 05:30 Plt Count 329 10^3/uL (120.0-450.0) 01/06/18 05:30 MPV 9.9 fl (7.0-11.0) 01/06/18 05:30 Gran % 48.4 % (50.0-68.0) L 01/06/18 05:30 Lymph % (Auto) 39.6 % (22.0-35.0) H 01/06/18 05:30 [place] % (Auto) 5.7 % (1.0-6.0) 01/06/18 05:30 Eos % (Auto) 6.1 % (1.5-5.0) H 01/06/18 05:30 Baso % (Auto) 0.2 % (0.0-3.0) 01/06/18 05:30 Gran # 4.41 (1.4-6.5) 01/06/18 05:30 Lymph # (Auto) 3.6 (1.2-3.4) H 01/06/18 05:30 [place] # (Auto) 0.5 (0.1-0.6) 01/06/18 05:30 Eos # (Auto) 0.6 (0.0-0.7) 01/06/18 05:30 Baso # (Auto) 0.02 K/mm3 (0.0-2.0) 01/06/18 05:30 ESR 10 mm/hr (0.0-20.0) 01/06/18 07:00 Sodium 141 mmol/L (132-148) 01/06/18 05:30 Potassium 4.3 mmol/L (3.6-5.0) 01/06/18 05:30 Chloride 107 mmol/L (98-107) 01/06/18 05:30 Carbon Dioxide 26 mmol/L (21-33) 01/06/18 05:30 Anion Gap 12 (10-20) 01/06/18 05:30 BUN 7 mg/dL (7-21) 01/06/18 05:30 Creatinine 0.4 mg/dl (0.7-1.2) L 01/06/18 05:30 Est GFR ( Amer) > 60 01/06/18 05:30 Est GFR (Non-Af Amer) > 60 01/06/18 05:30 Random Glucose 92 mg/dL (70-110) 01/06/18 05:30 Calcium 8.5 mg/dL (8.4-10.5) 01/06/18 05:30 Phosphorus 3.6 mg/dL (2.5-4.5) 01/06/18 05:30 Magnesium 1.9 mg/dL (1.7-2.2) 01/06/18 05:30 Total Bilirubin 0.3 mg/dL (0.2-1.3) 01/06/18 05:30 AST 29 U/L (14-36) 01/06/18 05:30 ALT 28 U/L (7-56) 01/06/18 05:30 Alkaline Phosphatase 74 U/L (38-126) 01/06/18 05:30 Lactate Dehydrogenase 377 U/L (333-699) 01/05/18 23:55 Total Creatine Kinase 34 U/L (35-230) L 01/05/18 23:55 Troponin I < 0.01 ng/mL 01/06/18 08:50 C-React Prot High Sens 4.20 mg/L (1.00-3.00) H 01/06/18 07:00 Total Protein 6.5 g/dL (5.8-8.3) 01/06/18 05:30 Albumin 3.4 g/dL (3.0-4.8) 01/06/18 05:30 Globulin 3.0 gm/dL 01/06/18 05:30 Albumin/Globulin Ratio 1.1 (1.1-1.8) 01/06/18 05:30 Triglycerides 111 mg/dL (35-160) 01/06/18 07:00 Cholesterol 119 mg/dL (130-200) L 01/06/18 07:00 LDL Cholesterol Direct 63 mg/dL (0-129) 01/06/18 07:00 HDL Cholesterol 31 mg/dL (29-60) 01/06/18 07:00 TSH 3rd Generation 3.61 mIU/mL (0.46-4.68) 01/06/18 07:00 - Hospital Course Hospital Course: Shiv Acuna, PGY-1 Discharge Summary for Hospitalist Service 37 y/o F presented this morning with pmhx of pericardial effusion, RA presented to ED with complains of constant "pressure like" chest pain that's aggravated with inspiration and not alleviated by anything in particular. Pain is located in sternal region and is currently 8/10 severity, without radiation and without tearing quality. The pain had started yesterday around 5pm, and remained since then. She reports having similar pain about a week prior and visited tracer bullet section supervisor who told her she had "an old heart attack." She is followed by a tracer bullet section supervisor at [place]. She denied fevers, chills, diaphoresis, shortness of breath, nausea, vomiting, headache, dizziness, constipation, diarrhea. CXR showed no active pulmonary disease. EKG showed NSR @ [address] or T wave changes. Cardio (Dr. Adams) was consulted for chest pain. Trop was negative. Patient symptoms resolved in the morning. BP and heart rate controlled. Echo was ordered to rule out pericardial effusion and pericarditis. Preliminary read showed no LVH and a LV EF of 58% without Mitral Regurgitation. Patient was instructed to follow up with her [employer] [facility] at [facility] Dr. Sanchez regarding ongoing pain medication. Patient is scheduled to undergo a stress test in outpatient setting [place] in [place] on January 27. Patient was hemodynamically stable and in full agreement for discharge home. All patient's questions were answered to patient's satisfaction. Patient was educated about smoking cessation and taking her statin and aspirin. Final echo read is still pending, so patient will be called with final result. Patient seen, case reviewed, and plan discussed with Dr. Irwin. Shiv Acuna, PGY-1 Discharge Exam - Additional Findings Additional findings: Physical Exam - Constitutional Appears: Well, Non-toxic, No Acute Distress - Head Exam Head Exam: NORMAL INSPECTION, NORMOCEPHALIC - Eye Exam Eye Exam: EOMI, Normal appearance - ENT Exam ENT Exam: Mucous Membranes Moist, Normal Exam - Neck Exam Neck exam: Positive for: Normal Inspection. Negative for: Meningismus - Respiratory Exam Respiratory Exam: Chest Wall Tenderness, Clear to Auscultation Bilateral, NORMAL BREATHING PATTERN - Cardiovascular Exam Cardiovascular Exam: REGULAR RHYTHM, +S1, +S2 Additional comments: No friction rub noted - GI/Abdominal Exam GI & Abdominal Exam: Normal Bowel Sounds, Soft. absent: Distended - Extremities Exam Additional comments: Bouchards nodes b/l u/e - Neurological Exam Neurological exam: Alert, CN II-XII Intact, Oriented x3 Discharge Plan - Discharge Medications Prescriptions: Aspirin [Ecotrin] 81 mg PO DAILY #14 tabec Atorvastatin [Lipitor] 40 mg PO DIN #14 tab - Follow Up Plan Condition: STABLE Disposition: HOME/ ROUTINE Patient education suggested?: Yes Instructions: Chest Pain That Is Not Caused by the Heart (DC), Heart Disease in Women (DC), Chest Pain (DC), Chest Pain (GEN), Smoke Inhalation (DC), Drugs to Help You Stop Using Tobacco Additional Instructions: Patient should take Aspirin and Lipitor as directed. Patient should follow up with Dr. Kenyon within week of discharge regarding continuity of care and appropriate pain medications. Patient should follow up with [facility] on 01/27 for outpatient stress test in [place]. Patient should follow up with [facility] in [place] for any ongoing psychiatric needs. Patient encouraged to stop smoking and provided education. Should symptoms reoccur or worsen, please return to nearest emergency department. Referrals: Antoinette Pena MD [Primary Care Provider] - Yonny Alvarez MD [Staff Provider] - Faisal Kenyon MD [Non-Staff] -
--- NOTE | 2018-01-06 15:37 | CARD ---
APPROVED REPORT Date of service: 01/05/2018 EKG Measurement Heart [id number] <Conclusion> Sinus tachycardia Possible Left atrial enlargement Borderline ECG
[2018-01-07] MEDS ORDERED: Pantoprazole 40 mg EC Tab PO SCH (07:30)
--- NOTE | 2018-01-07 23:33 | CARD ---
APPROVED REPORT Date of service: 01/06/2018 EXAM: Two-dimensional and M-mode echocardiogram with Doppler and color Doppler. INDICATION LV Function:SystolicDiastolic Chest Pain 2D DIMENSIONS Left Atrium (2D)3.2 (1.6-4.0cm)IVSd0.8 (0.7-1.1cm) LVDd4.0 (3.9-5.9cm)PWd0.8 (0.7-1.1cm) LVDs2.8 (2.5-4.0cm)FS (%) 29.9 % LVEF (%)57.7 (>50%) M-Mode DIMENSIONS Aortic Root2.60 (2.2-3.7cm)Aortic Cusp Exc.1.80 (1.5-2.0cm) Aortic Valve AoV Peak Zuzlvuwf861.0cm/Velia Peak GR.5mmHg Mitral Valve MV E Wddkuvpm03.5cm/sMV A Zzdfdfyh58.3cm/sE/A ratio1.7 TDI E/Lateral E'0.0E/Medial E'0.0 Tricuspid Valve TR Peak [id number]/sRAP [id number] Peak Gr.18mmHg [id number] LEFT VENTRICLE The left ventricle is normal size. There is normal left ventricular wall thickness. The left ventricular function is normal.EF-55-60% There is normal LV segmental wall motion. The left ventricular diastolic function is normal. No left ventricle thrombus noted on this study. There is no ventricular septal defect visualized. There is no left ventricular aneurysm. There is no mass noted in the left ventricle. RIGHT VENTRICLE The right ventricle is normal size. There is normal right ventricular wall thickness. The right ventricular systolic function is normal. ATRIA The left atrium size is normal. The right atrium size is normal. The interatrial septum is intact with no evidence for an atrial septal defect. AORTIC VALVE The aortic valve is normal in structure. No aortic regurgitation is present. There is no aortic valvular stenosis. There is no aortic valvular vegetation. MITRAL VALVE The mitral valve is normal in structure. Mitral regurgitation is trace. There is no mitral valve stenosis. There is no evidence of mitral valve prolapse. TRICUSPID VALVE The tricuspid valve is normal in structure. There is trace tricuspid regurgitation.RVSP-28 mm of Hg There is no tricuspid valve stenosis. There is no tricuspid valve prolapse or vegetation. PULMONIC VALVE The pulmonary valve is normal in structure. There is no pulmonic valvular regurgitation. There is no pulmonic valvular stenosis. GREAT VESSELS The aortic root is normal in size. The ascending aorta is normal in size. The pulmonary artery is normal. The IVC is normal in size and collapses >50% with inspiration. PERICARDIAL EFFUSION There is no pleural effusion. There is no pericardial effusion. <Conclusion> Normal Chamber size.EF-55-60% tace MR/TR RVSP-28 mm of HG
== END 2018-01-06 14:57 | disposition home or self-care (01) ==
LOC: ED 22:39 → ERH 01-06 02:28 → 3RNO 01-06 04:08
PROVIDERS: ADMIT Internal Medicine; ATTEND Internal Medicine
DX: R07.89 Other chest pain (principal); M06.9 Rheumatoid arthritis, unspecified; F17.210 Nicotine dependence, cigarettes, uncomplicated; I25.2 Old myocardial infarction; Z79.82 Long term (current) use of aspirin; Z96.651 Presence of right artificial knee joint; Z88.6 Allergy status to analgesic agent
CPT/HCPCS: 36415; 71046; 80053; 80061; 82550; 83615; 83735; 84100; 84443; 84484; 85025; 85651; 86140; 93005; 93306; 99285; C9113; G0378

== ENCOUNTER 2018-04-19 11:33 | Emergency (ER) | payer MEDICAID ==
[2018-04-19 11:34] VITALS: BMI 18.5
[2018-04-19 12:01] VITALS: RESP 18; TEMP 98.1; O2SAT 100
--- NOTE | 2018-04-19 12:34 | ED PDOC ---
Arrival/HPI - General Chief Complaint: Lower Extremity Problem/Injury Time Seen by Provider: 04/19/18 11:51 Historian: Patient - History of Present Illness Narrative History of Present Illness (Text): 04/19/18 12:45 38-year-old female presents today with right knee pain has been worsening over the past month. Patient denies numbness weakness or tingling in the extremity. Patient states the pain is located over the anterior aspect of the knee. It's worse with flexion of the knee. No medications have been taken for pain at home. Patient states she had a history of knee replacement approximately 6 years ago in [place]. Patient states she has a history of rheumatoid arthritis but is not currently taking any medications. Patient denies fevers or chills. She denies calf pain. Patient denies any recent trauma or injury. No other complaints. Symptom Onset: Gradual Symptom Course: Worsening Quality: Aching, Burning Severity Level: Moderate Past Medical History - Provider Review Nursing Documentation Reviewed: Yes - Travel History Have you recently traveled outside [place] w/in the past 3 mons?: No - Infectious Disease Hx of Infectious Diseases: None - Tetanus Immunization Tetanus Immunization: Unknown - Cardiac Hx Cardiac Disorders: No - Pulmonary Hx Respiratory Disorders: No - Neurological Hx Neurological Disorder: No - HEENT Hx HEENT Disorder: No - Renal Hx Renal Disorder: No - Endocrine/Metabolic Hx Endocrine Disorders: No - Hematological/Oncological Hx Blood Disorders: No - Integumentary Hx Dermatological Disorder: No - Musculoskeletal/Rheumatological Hx Arthritis: Yes Hx Falls: No Hx Rheumatoid Arthritis: Yes Hx Spinal Stenosis: Yes Other/Comment: RA, OA, - Gastrointestinal Hx Gastrointestinal Disorders: No - Genitourinary/Gynecological Hx Genitourinary Disorders: No - Psychiatric Hx Psychophysiologic Disorder: No Hx Substance Use: Yes - Surgical History Hx Cholecystectomy: Yes Other/Comment: B/L foot, left hand, gallbladder removed,. Right knee replacement. - Anesthesia Hx Anesthesia: No Hx Anesthesia Reactions: No Hx Malignant Hyperthermia: No Family/Social History - Physician Review Nursing Documentation Reviewed: Yes Family/Social History: Unknown Family HX Smoking Status: Heavy Smoker > 10 Cigarettes Daily Hx Alcohol Use: No Hx Substance Use: Yes Substance used: percocet Allergies/Home Meds Allergies/Adverse Reactions: Allergies tramadol Allergy (Verified 01/05/18 22:50) HEADACHE Review of Systems - Review of Systems Constitutional: absent: Fatigue, Fevers Respiratory: absent: SOB, Cough Cardiovascular: absent: Chest Pain, Palpitations Gastrointestinal: absent: Abdominal Pain, Nausea, Vomiting Musculoskeletal: Arthralgias (right knee pain) Skin: absent: Rash, Pruritis Neurological: absent: Headache, Dizziness Psychiatric: absent: Anxiety, Depression Physical Exam Vital Signs Reviewed: Yes Vital Signs Temp Pulse Resp BP Pulse Ox 04/19/18 12:01 98.1 F 78 18 135/62 100 Temperature: Afebrile Blood Pressure: Normal Pulse: Regular Respiratory Rate: Normal Appearance: Positive for: Well-Appearing, Non-Toxic, Comfortable Pain Distress: None Mental Status: Positive for: Alert and Oriented X 3 - Systems Exam Head: Present: Atraumatic Mouth: Present: Moist Mucous Membranes Neck: Present: Normal Range of Motion Respiratory/Chest: Present: Clear to Auscultation, Good Air Exchange. No: Respiratory Distress, Accessory Muscle Use Cardiovascular: Present: Regular Rate and Rhythm, Normal S1, S2. No: Murmurs Abdomen: No: Tenderness, Distention, Peritoneal Signs, Rebound, Guarding Lower Extremity: Present: Normal Inspection, NORMAL PULSES, Normal ROM, Tenderness (right knee; there is a healed midline vertical scar. no erythema; no edema, no ecchymosis; full rom of knee, no calf tenderness; sensation intact. no posterior knee tenderness.), Neurovascularly Intact. No: CALF TENDERNESS, Swelling, Erythema, Temperature Abnormalties Neurological: Present: GCS=15, Speech Normal Skin: Present: Warm, Dry, Normal Color Psychiatric: Present: Alert, Oriented x 3 Medical Decision Making ED Course and Treatment: 04/19/18 12:47 Patient nontoxic well-appearing in no distress with stable vital signs X-rays of the right knee; FINDINGS: BONES: No acute displaced fracture. JOINTS: Right knee arthroplasty. No dislocation. JOINT EFFUSION: No significant joint effusion. OTHER FINDINGS: None. IMPRESSION: No acute findings identified. See above. toradol IM Patient placed in knee immobilizer. Crutches given for ambulation I discussed all results with patient advised to followup with the orthopedist for the next 2 days. Return if symptoms worsen persist or new symptoms develop Patient verbalizes understanding of discharge instructions and need for immediate followup. all aspects of this case were discussed the attending of record. Impression: knee pain Motrin every 6 hours as needed for pain Rest, ice, compression, elevation Use crutches for ambulation Followup with the orthopedist within the next 2 days Followup with primary care physician within the next 2 days Return if symptoms worsen persist or if new symptoms develop - RAD Interpretation Radiology Orders: 04/19/18 12:33 KNEE W PATELLA RIGHT 3 VIEW [RAD] Stat - Medication Orders Current Medication Orders: Ketorolac Tromethamine (Toradol) 30 mg IM STAT STA Stop: 04/19/18 12:32 Disposition/Present on Arrival - Present on Arrival Any Indicators Present on Arrival: No History of DVT/PE: No History of Uncontrolled Diabetes: No Urinary Catheter: No History of Decub. Ulcer: No History Surgical Site Infection Following: None - Disposition Have Diagnosis and Disposition been Completed?: Yes Diagnosis: Knee pain Disposition Time: 12:34 Patient Plan: Discharge Patient Problems: Current Active Problems Problem Status Onset Knee pain Acute Condition: GOOD Discharge Instructions (ExitCare): Knee Pain (DC) Additional Instructions: Motrin every 6 hours as needed for pain Rest, ice, compression, elevation Use crutches for ambulation Followup with the orthopedist within the next 2 days Followup with primary care physician within the next 2 days Return if symptoms worsen persist or if new symptoms develop Prescriptions: Ibuprofen [Motrin Tab] 400 mg PO Q6H PRN #20 tab PRN Reason: Pain, Mild (1-3) Referrals: Royer Duque MD [Staff Provider] - Follow up with primary Serene Romeo MD [Medical Doctor] - Follow up with primary [facility] [Outside] - Follow up with primary [facility] [place] [Outside] - Follow up with primary Forms: [employer] (Romanian), WORK NOTE
--- NOTE | 2018-04-19 13:23 | RAD ---
PROCEDURE: Right Knee Radiographs. HISTORY: knee pain COMPARISON: No prior. FINDINGS: BONES: No acute displaced fracture. JOINTS: Right knee arthroplasty. No dislocation. JOINT EFFUSION: No significant joint effusion. OTHER FINDINGS: None. IMPRESSION: No acute findings identified. See above.
[2018-04-19 14:04] VITALS: BP 128/60; PULSE 76
== END 2018-04-19 14:03 | disposition home or self-care (01) ==
LOC: ED 11:33
DX: M25.561 Pain in right knee (principal); F17.210 Nicotine dependence, cigarettes, uncomplicated; M06.9 Rheumatoid arthritis, unspecified
CPT/HCPCS: 73562; 96372; 99284; J1885